=== PATIENT | female | born 2000 | race Caucasian/White ===

== ENCOUNTER 2023-03-04 23:12 | Emergency (ER) | payer OTHER ==
[~2023-03-04] VITALS: Ht 160 cm; Wt 119.8 kg
[2023-03-04 23:13] VITALS: TEMP 97.8
[2023-03-05] MEDS ORDERED: BOOSTRIX VACCINE (TETANUS/DIPHTH/ACEL. PERTUSSIS) 0.5ML SYR IM ONE (01:15)
[2023-03-05 01:57] VITALS: BP 135/74; O2SAT 98
== END 2023-03-05 02:00 | disposition home or self-care (01) ==
LOC: M ED 23:12
DX: O26.91 Pregnancy related conditions, unspecified, first trimester (principal); S41.111A Laceration without foreign body of right upper arm, initial encounter; V40.6XXA Car passenger injured in collision with pedestrian or animal in traffic accident, initial encounter; Z3A.00 Weeks of gestation of pregnancy not specified; Z23 Encounter for immunization

== ENCOUNTER → 2023-04-01 | Outpatient (CLI) | payer MEDICAID, OTHER, SELFPAY ==
[2023-04-01 17:04] LABS: HCG, SERUM QUALITATIVE POSITIVE (NEGATIVE)
[2023-04-01 18:25] LABS: HCG, SERUM QUANTITATIVE 5225.3 MIU/ML (<4.2)
== END ==
LOC: M LAB 16:12
PROVIDERS: ATTEND Obstetrics & Gynecology Obstetrics
DX: N91.2 Amenorrhea, unspecified (principal)

== ENCOUNTER → 2023-04-09 | Outpatient (CLI) | payer MEDICAID, OTHER, SELFPAY | LOC: M WHC 08:18 | PROVIDERS: ATTEND Obstetrics & Gynecology Obstetrics | DX: Z32.01 Encounter for pregnancy test, result positive (principal); Z3A.01 Less than 8 weeks gestation of pregnancy; N83.11 Corpus luteum cyst of right ovary; O26.891 Other specified pregnancy related conditions, first trimester ==